=== PATIENT | female | born 1995 | race Caucasian/White ===

== ENCOUNTER 2022-11-21 03:09 | Day surgery (SDC) | payer OTHER ==
[2022-11-21] MEDS ORDERED: hydrALAZINE 20 MG/ML VIAL SLOW IVP PRN (03:38)
[2022-11-21 04:28] VITALS: BMI 50.5
== END 2022-11-21 04:05 | disposition home or self-care (01) ==
LOC: CSHLD/OP 03:09
PROVIDERS: ATTEND Family Medicine
DX: O47.1 False labor at or after 37 completed weeks of gestation (principal); O99.013 Anemia complicating pregnancy, third trimester; D64.9 Anemia, unspecified; Z3A.38 38 weeks gestation of pregnancy; Z79.899 Other long term (current) drug therapy; Z86.19 Personal history of other infectious and parasitic diseases
CPT/HCPCS: 99282

== ENCOUNTER 2022-11-26 01:20 | Day surgery (SDC) | payer OTHER ==
[2022-11-26 02:30] VITALS: BMI 50.1
[2022-11-26] MEDS ORDERED: hydrALAZINE 20 MG/ML VIAL SLOW IVP PRN (03:04)
[2022-11-26] MEDS ORDERED: metroNIDAZOLE 500 MG TAB PO SCH (04:45)
[2022-11-26] MEDS ORDERED: Lactated Ringer's 1,000 ML IV SCH ×2 (04:45→05:30)
== END 2022-11-26 06:39 | disposition home or self-care (01) ==
LOC: CSHLD/OP 01:20
PROVIDERS: ATTEND Family Medicine
DX: O99.891 Other specified diseases and conditions complicating pregnancy (principal); R10.30 Lower abdominal pain, unspecified; O99.343 Other mental disorders complicating pregnancy, third trimester; F41.9 Anxiety disorder, unspecified; F32.A Depression, unspecified; O99.013 Anemia complicating pregnancy, third trimester; D64.9 Anemia, unspecified; O26.43 Herpes gestationis, third trimester; O23.593 Infection of other part of genital tract in pregnancy, third trimester; B96.89 Other specified bacterial agents as the cause of diseases classified elsewhere; N89.8 Other specified noninflammatory disorders of vagina; Z3A.39 39 weeks gestation of pregnancy
CPT/HCPCS: 87480; 87510; 87660; 96360; 96361; 99283

== ENCOUNTER 2022-11-26 19:03 | Inpatient (IN) | payer OTHER ==
[~2022-11-26 19:03] MED LIST: Bupivacaine 0.25% HCL 30 ML VIAL ONE; ePHEDrine Sulfate 50 MG/10 ML VIAL ONE
[2022-11-26] MEDS ORDERED: hydrALAZINE 20 MG/ML VIAL SLOW IVP PRN ×2 (19:21→19:51)
[2022-11-26] MEDS ORDERED: Acetaminophen 500 MG TAB PO PRN (19:51)
[2022-11-26] MEDS ORDERED: Ondansetron PF 4 MG/2 ML Vial IVP PRN ×2 (19:51→22:24)
[2022-11-26] MEDS ORDERED: Tranexamic Acid 1,000 MG/10 ML VIAL IVP PRN (19:51)
[2022-11-26] MEDS ORDERED: Ibuprofen 800 MG TAB PO PRN (19:51)
[2022-11-26] MEDS ORDERED: Carboprost 250 MCG/ML AMP IM PRN (19:51)
[2022-11-26] MEDS ORDERED: Promethazine HCl 25 MG/ML VIAL IM PRN ×2 (19:51→22:24)
[2022-11-26] MEDS ORDERED: fentaNYL 50 mcg/mL 1 mL Vial SLOW IVP PRN (19:51)
[2022-11-26] MEDS ORDERED: Misoprostol 200 MCG TAB PR PRN (19:51)
[2022-11-26] MEDS ORDERED: Methylergonovine 0.2 MG/ML VIAL IM PRN (19:51)
[2022-11-26] MEDS ORDERED: Diphenoxylate HCl/Atropine Tablet PO PRN (19:51)
[2022-11-26] MEDS ORDERED: Lidocaine 1% (PF) 30 ML VIAL SC PRN (19:51)
[2022-11-26] MEDS ORDERED: Ondansetron PF 4 MG/2 ML Vial IVP SCH (20:00)
[2022-11-26] MEDS ORDERED: Penicillin G Potassium 5 MILL.UNITS in Sodium Chloride 0.9% 100 ML IVPB SCH (20:00)
[2022-11-26] MEDS ORDERED: NS w/ Oxytocin 30 units 500 ML IV SCH ×2 (20:00)
[2022-11-26] MEDS ORDERED: fentaNYL/Ropivacaine Epidural 100 ML ONE (20:18)
[2022-11-26 20:25] VITALS: BMI 49.6
[2022-11-26 20:39] LABS: Hematocrit 34.5 % (34.9-44.5); Hemoglobin 11.4 g/dL (12.0-15.5); Mean Corpuscular Hemoglobin 27.1 pg (27.0-33.0); Mean Corpuscular Volume 82.1 fl (81.6-98.3); Mean Platelet Volume 11.4 fl (7.4-10.4); Platelet Count 186 10x3/uL (150-450); RBC Distribution Width 19.7 % (11.5-14.5); White Blood Cell (WBC) Count 14.4 10x3/uL (3.5-10.5)
[2022-11-26 21:05] LABS: Syphilis Antibody Nonreactive (Nonreactive); Syphilis Antibody Index 0.03 S/CO (<1.00 Non-Reactive)
[2022-11-26 21:06] LABS: HBSAg Index 0.18 S/CO (0-0.99); Hep B Surf Ag - L&D Non-Reactive S/CO (NonReactive)
[2022-11-26] MEDS ORDERED: Naloxone HCl 0.4 mg/ml Vial IVP PRN ×2 (22:24)
[2022-11-26] MEDS ORDERED: diphenhydrAMINE 50 MG/ML VIAL IVP PRN (22:24)
[2022-11-26] MEDS ORDERED: Acetaminophen 325 MG TAB PO PRN (22:24)
[2022-11-26] MEDS ORDERED: Moisturizing Cream (Eucerin) 113 GM JAR TOP PRN (22:24)
[2022-11-26] MEDS ORDERED: ePHEDrine Sulfate 50 MG/10 ML VIAL SLOW IVP PRN (22:24)
[2022-11-26] MEDS ORDERED: Lactated Ringer's 500 ML IV PRN (22:24)
[2022-11-26] MEDS ORDERED: Communication Order-Pharmacy FS SCH (22:30)
[2022-11-26] MEDS ORDERED: fentaNYL 2 mcg/Ropivacaine 0.2% Epidural 100 ML CADD EPIDURAL SCH (22:30)
[2022-11-27] MEDS: Penicillin G 2.5 MILL.units 2.5 MILL.UNITS in Premix Bag 1 BAG IVPB SCH ×2 (00:07→06:05)
[2022-11-27] MEDS ORDERED: Ondansetron PF 4 MG/2 ML Vial IVP PRN (05:16)
[2022-11-27] MEDS ORDERED: diphenhydrAMINE 25 MG CAP PO PRN (05:16)
[2022-11-27] MEDS ORDERED: Lanolin Ointment 7 GM TUBE TOP PRN (05:16)
[2022-11-27] MEDS ORDERED: HYDROcodone/Acetaminophen 5/325 mg Tablet PO PRN (05:16)
[2022-11-27] MEDS ORDERED: Boostrix 0.5 ML (Tdap) VIAL (>/=7 yrs of age) IM ONE (05:16)
[2022-11-27] MEDS ORDERED: Benzocaine-Menthol 82.5 ML CAN TOP PRN (05:16)
[2022-11-27] MEDS ORDERED: Bisacodyl 10 MG SUPP PR PRN (05:16)
[2022-11-27] MEDS ORDERED: Milk Of Magnesia 30 ML UDCUP PO PRN (05:16)
[2022-11-27] MEDS ORDERED: hydrALAZINE 20 MG/ML VIAL SLOW IVP PRN (05:16)
[2022-11-27] MEDS ORDERED: NS w/ Oxytocin 30 units 500 ML IV SCH (05:16)
[2022-11-27] MEDS ORDERED: Promethazine HCl 25 MG/ML VIAL IM PRN (05:16)
[2022-11-27] MEDS: Ibuprofen 800 MG TAB PO SCH ×3 (05:36→21:54)
[2022-11-27] MEDS: Docusate 100 MG CAP PO SCH ×2 (09:10→21:53)
[2022-11-27] MEDS: Prenatal Vitamin 1 TAB PO SCH (09:10)
[2022-11-27] MEDS: Ferrous Sulfate 325 MG TAB PO SCH (17:37)
[2022-11-27] MEDS ORDERED: Acetaminophen 500 MG TAB PO PRN (19:58)
[2022-11-28] MEDS: Ibuprofen 800 MG TAB PO SCH ×2 (05:37→15:22)
[2022-11-28 07:30] VITALS: BP 121/60; TEMP 97.9
[2022-11-28] MEDS: Prenatal Vitamin 1 TAB PO SCH (07:58)
[2022-11-28] MEDS: Docusate 100 MG CAP PO SCH (07:59)
[2022-11-28] MEDS: Ferrous Sulfate 325 MG TAB PO SCH (07:59)
== END 2022-11-28 16:10 | disposition home or self-care (01) | DRG 806 ==
LOC: CSHLD/OP 19:03 → CSHLD 19:51 → CSHPP 11-27 03:30
PROVIDERS: ADMIT Family Medicine; ATTEND Family Medicine
PROC: 10E0XZZ Delivery of Products of Conception, External Approach (ICD-10-PCS; principal; 2022-11-27)
PROC: 0UQMXZZ Repair Vulva, External Approach (ICD-10-PCS; 2022-11-27)
DX: O42.02 Full-term premature rupture of membranes, onset of labor within 24 hours of rupture (principal); O98.52 Other viral diseases complicating childbirth; Z37.0 Single live birth; Z3A.39 39 weeks gestation of pregnancy; O70.0 First degree perineal laceration during delivery; B00.9 Herpesviral infection, unspecified; O99.02 Anemia complicating childbirth; O99.344 Other mental disorders complicating childbirth; F41.9 Anxiety disorder, unspecified; F32.A Depression, unspecified
CPT/HCPCS: 51702; 85027; 86780; 86850; 86900; 86901; 87340; 87480; 87510; 87660; 96360; 96361; 99283; 99285; J2001; J2540; J2590; J3490; S0020